=== PATIENT | male | born 1940 | race Caucasian/White ===

== ENCOUNTER 2017-03-27 09:51 | Emergency (ER) | payer OTHER ==
[~2017-03-27] VITALS: Ht 175.3 cm; Wt 75.0 kg
[~2017-03-27 09:51] MED LIST: BUSP5 PO; DEPA250T2 PO; GALA4 PO; LACO100 PO; OXYB5TAB PO; REME15TA PO; TRAZ50TA4 PO; ZYPR10TA PO
[2017-03-27 10:04] VITALS: BP 168/90; PULSE 69; RESP 16; TEMP 98.6; O2SAT 95
[2017-03-27] MEDS ORDERED: SODIUM CHLORIDE 0.9% FLUSH 10 ML FLUSH IVF PRN (10:15)
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
[2017-03-27] MEDS ORDERED: VENL75TA2 PO (10:28)
[2017-03-27] MEDS ORDERED: CARB200T (10:28)
[2017-03-27] MEDS ORDERED: GALA24CA PO (10:28)
[2017-03-27] MEDS ORDERED: QUET1TAB10 PO (10:28)
[2017-03-27] MEDS ORDERED: BUSP30TA PO (10:28)
[2017-03-27] MEDS ORDERED: QUET-87 PO (10:28)
[2017-03-27 10:36] LABS: AUTOMATED NEUTROPHIL # 3.2 TH/MM3 (1.8-7.7); BASOPHIL # 0.1 TH/MM3 (0-0.2); BASOPHIL % 1.2 % (0.0-2.0); EOSINOPHIL # 0.1 TH/MM3 (0-0.4); EOSINOPHIL % 2.3 % (0.0-4.0); HEMATOCRIT 40.8 % (39.0-51.0); HEMOGLOBIN 14.2 GM/DL (13.0-17.0); LYMPH % 29.4 % (9.0-44.0); LYMPHOCYTE # 1.6 TH/MM3 (1.0-4.8); MEAN CELL VOLUME 88.2 FL (80.0-100.0); MEAN CORPUSCULAR HEMOGLOBIN 30.7 PG (27.0-34.0); MEAN CORPUSCULAR HGB CONC 34.8 % (32.0-36.0); MEAN PLATELET VOLUME 7.2 FL (7.0-11.0); MONO % 6.2 % (0.0-8.0); MONOCYTE # 0.3 TH/MM3 (0-0.9); NEUT % 60.9 % (16.0-70.0); PLATELET COUNT 211 TH/MM3 (150-450); RED BLOOD COUNT 4.62 MIL/MM3 (4.50-5.90); RED CELL DISTRIBUTION WIDTH 12.8 % (11.6-17.2); WHITE BLOOD COUNT 5.3 TH/MM3 (4.0-11.0)
[2017-03-27 10:52] LABS: BICARBONATE 27.7 MEQ/L (21.0-32.0); BLOOD UREA NITROGEN 17 MG/DL (7-18); CALCIUM 8.7 MG/DL (8.5-10.1); CHLORIDE 103 MEQ/L (98-107); CREATININE 0.95 MG/DL (0.60-1.30); GLOMERULAR FILTRATION RATE 77 ML/MIN (>89); GLUCOSE,RANDOM 102 MG/DL (74-106); SODIUM (NA) 136 MEQ/L (136-145)
[2017-03-27 10:53] LABS: INTERNATIONAL NORMALIZED RATIO 1.1 RATIO
[2017-03-27 10:54] LABS: PROTHROMBIN TIME - PATIENT 10.7 SEC (9.8-11.6)
[2017-03-27 11:00] VITALS: BP 155/78; PULSE 66; RESP 15; O2SAT 98
[2017-03-27 11:11] LABS: TROPONIN I LESS THAN 0.02 NG/ML (0.02-0.05)
--- NOTE | 2017-03-27 11:36 | RADRPT ---
EXAM DATE/TIME: 03/27/2017 11:14 [facility] COMPARISON: CT BRAIN W/O CONTRAST, July 15, 2013, 16:50. INDICATIONS : [place] dizzy when standing up, fell and hit head on glass table, laceration to right posterior head. RADIATION DOSE: 36.92 CTDIvol (mGy) MEDICAL HISTORY : Dementia. Alzheimer's. Seizures.Prostate cancer, Hypertension SURGICAL HISTORY : Appendectomy. Crainal surgery. ENCOUNTER: Initial ACUITY: 1 day PAIN SCALE: 5/10 LOCATION: cranial TECHNIQUE: Multiple contiguous axial images were obtained of the head. Using automated exposure control and adj ustment of the mA and/or kV according to patient size, radiation dose was kept as low as reasonably a chievable to obtain optimal diagnostic quality images. DICOM format image data is available electro nically for review and comparison. FINDINGS: Large area of porencephaly right vertebral flow to region with dilatation of the right lateral ventri jose l. Mild central and cortical atrophy. Minimal periventricular white matter changes. No extra-axi al fluid. Atrophy cerebellum. Right parietal cephalhematoma without fracture. Evidence for previous surgery right frontal region. 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 Negative for an acute process. Lester Russell MD FACR on March 27, 2017 at 11:32 Board Certified Radiologist. This report was verified electronically.
--- NOTE | 2017-03-27 11:53 | RADRPT ---
EXAM DATE/TIME: 03/27/2017 10:30 [facility] COMPARISON: No previous studies available for comparison. INDICATIONS : Fall. Heart palpitations. MEDICAL HISTORY : None. SURGICAL HISTORY : None. ENCOUNTER: Initial ACUITY: 1 day PAIN SCORE: 0/10 LOCATION: Bilateral chest FINDINGS: A single view of the chest demonstrates the lungs to be symmetrically aerated without evidence of mas s, infiltrate or effusion. The cardiomediastinal contours are unremarkable. Osseous structures are intact. CONCLUSION: No acute disease. Alfonzo Da Silva MD on March 27, 2017 at 11:50 Board Certified Radiologist. This report was verified electronically.
--- NOTE | 2017-03-27 12:19 | PD ---
Physical Exam Time Seen by Provider: :18 Data Data Last Documented VS Vital Signs Date Time Temp Pulse Resp B/P (MAP) Pulse Ox O2 Delivery O2 Flow Rate FiO2 03/27/17 10:04 98.6 69 16 168/90 (116) [address] Brain W/O Iv Contrast(Rout) (03/27/17 10:14) Electrocardiogram (03/27/17 10:15) Basic Metabolic Panel (Bmp) (03/27/17 10:15) Complete Blood Count With Diff (03/27/17 10:15) Troponin I (03/27/17 10:15) Act Partial Throm Time (Ptt) (03/27/17 10:15) Prothrombin Time / Inr (Pt) (03/27/17 10:15) Ecg Monitoring (03/27/17 10:15) Iv Access Insert/Monitor (03/27/17 10:15) Oximetry (03/27/17 10:15) Sodium Chloride 0.9% Flush (Ns Flush) (03/27/17 10:15) Chest, Single Ap (03/27/17 10:16) Diet Regular Basic (03/27/17 Lunch) Labs Laboratory Tests Test 03/27/17 10:15 White Blood Count 5.3 TH/MM3 Red Blood Count 4.62 MIL/MM3 Hemoglobin 14.2 GM/DL Hematocrit 40.8 % Mean Corpuscular Volume 88.2 FL Mean Corpuscular Hemoglobin 30.7 PG Mean Corpuscular Hemoglobin Concent 34.8 % Red Cell Distribution Width 12.8 % Platelet Count 211 TH/MM3 Mean Platelet Volume 7.2 FL Neutrophils (%) (Auto) 60.9 % Lymphocytes (%) (Auto) 29.4 % Monocytes (%) (Auto) 6.2 % Eosinophils (%) (Auto) 2.3 % Basophils (%) (Auto) 1.2 % Neutrophils # (Auto) 3.2 TH/MM3 Lymphocytes # (Auto) 1.6 TH/MM3 Monocytes # (Auto) 0.3 TH/MM3 Eosinophils # (Auto) 0.1 TH/MM3 Basophils # (Auto) 0.1 TH/MM3 CBC Comment AUTO DIFF Differential Comment AUTO DIFF CONFIRMED Prothrombin Time 10.7 SEC Prothromb Time International Ratio 1.1 RATIO Activated Partial Thromboplast Time 23.4 SEC Blood Urea Nitrogen 17 MG/DL Creatinine 0.95 MG/DL Random Glucose 102 MG/DL Calcium Level 8.7 MG/DL Sodium Level 136 MEQ/L Potassium Level 4.7 MEQ/L Chloride Level 103 MEQ/L Carbon Dioxide Level 27.7 MEQ/L Anion Gap 5 MEQ/L Estimat Glomerular Filtration Rate 77 ML/MIN Troponin I LESS THAN 0.02 NG/ML MDM Medical Record Reviewed: Yes Supervised Visit with FABIANA: No Procedures Procedure Narrative LACERATION LOCATION: Left parietal scalp LENGTH: 3 cm NUMBER OF STITCHES/VICKY: 7 Vicky REPAIR: The area of the laceration was prepped with Betadine and sterilely draped. The laceration was infiltrated with 1% lidocaine with epinephrine. The wound was copiously irrigated and explored without evidence of foreign body , tendon injury or neurovascular injury. The wound was closed using vicky. This was a single layer repair. A sterile dressing was applied. The patient was advised to keep the dressing clean and dry. Patient tolerated the procedure well. LACERATION LOCATION: Left parietal scalp LENGTH: 1 cm NUMBER OF STITCHES/VICKY: 1 Vicky REPAIR: The area of the laceration was prepped with Betadine and sterilely draped. The laceration was infiltrated with 1% lidocaine with epinephrine. The wound was copiously irrigated and explored without evidence of foreign body , tendon injury or neurovascular injury. The wound was closed using vicky. This was a single layer repair. A sterile dressing was applied. The patient was advised to keep the dressing clean and dry. Patient tolerated the procedure well. Condition: Stable PhuongBeverlyAnushafabi CALVERT Mar 27, 2017 12:19
--- NOTE | 2017-03-27 14:45 | EKG ---
Date Performed: 03/27/2017 Time Performed: 10:44:47 PTAGE: 77 years EKG: Sinus rhythm MARKED LEFT AXIS DEVIATION INCOMPLETE RIGHT BUNDLE BRANCH BLOCK NONSPECIFIC T-WAVE ABNORMALITY Since previous tracing, no significant change noted ABNORMAL ECG PREVIOUS TRACING : 07/15/2013 16.24 DOCTOR: Bridget Vaca Interpretating Date/Time 03/27/2017 14:43:04
== END 2017-03-27 14:37 | disposition home or self-care (01) ==
LOC: NEPE 09:51
DX: S01.01XA Laceration without foreign body of scalp, initial encounter (principal); S00.03XA Contusion of scalp, initial encounter; W01.190A Fall on same level from slipping, tripping and stumbling with subsequent striking against furniture, initial encounter; R42 Dizziness and giddiness; R94.31 Abnormal electrocardiogram [ECG] [EKG]; G30.9 Alzheimer's disease, unspecified; F02.80 Dementia in other diseases classified elsewhere, unspecified severity, without behavioral disturbance, psychotic disturbance, mood disturbance, and anxiety; E78.00 Pure hypercholesterolemia, unspecified; I10 Essential (primary) hypertension; Z85.46 Personal history of malignant neoplasm of prostate
CPT/HCPCS: 12002; 70450; 71045; 80048; 84484; 85025; 85610; 85730; 93005